=== PATIENT | female | born 1955 | race Caucasian/White ===

== ENCOUNTER 2018-01-13 06:06 | Day surgery (SDC) | payer OTHER ==
[~2018-01-13 06:06] MED LIST: ATEN50; CALC-197 PO; ESTR.625; LIPI20TA OR; LORTA10 PO; OMEP20CA5 PO
[2018-01-13] MEDS ORDERED: POVIDONE IODINE 5% (ANTISEPSIS KIT) 4 APPLICATIONS EACH NARE SCH (06:45)
[2018-01-13] MEDS ORDERED: CHLORHEXIDINE GLUCONATE 2 % 1 PACK (2 CLOTHS) TOPICAL SCH (06:45)
[2018-01-13] MEDS ORDERED: NS 1000 ML IV SCH (06:45)
[2018-01-13] MEDS ORDERED: MUPIROCIN 2% OINT 1 APPLIC/GM SYR NASAL SCH (06:45)
[2018-01-13] MEDS ORDERED: ceFAZolin 2 GM PREMIX 50 ML IV SCH (06:45)
[2018-01-13] MEDS ORDERED: ESTR0.62 VAGINAL (06:51)
[2018-01-13] MEDS ORDERED: MIRA50TA PO (06:51)
[2018-01-13] MEDS ORDERED: CITA40TA4 PO (06:51)
[2018-01-13] MEDS ORDERED: CALC1TAB12 PO (06:51)
[2018-01-13] MEDS ORDERED: MULT-65 PO (06:51)
[2018-01-13] MEDS ORDERED: LIPI20TA PO (06:51)
[2018-01-13] MEDS ORDERED: OMEP20TA93 PO (06:51)
[2018-01-13] MEDS ORDERED: [UNRECOGNIZED DRUG - REMARK] OP (06:51)
[2018-01-13] MEDS ORDERED: METO1TAB9 PO (06:51)
[2018-01-13] MEDS ORDERED: TYLE325T PO (06:51)
[2018-01-13] MEDS ORDERED: DILT1TAB4 PO (06:51)
[2018-01-13] MEDS ORDERED: LIDOCAINE HCL 1% PF 30 ML VIAL ONE (07:00)
--- NOTE | 2018-01-13 08:10 | MA ---
cc: Guillermo Beck MD, Alan S MD DATE: 01/13/2018 DATE OF PROCEDURE: 01/13/2017 INDICATION FOR PROCEDURE: Arrhythmia, concern for atrial fibrillation. DESCRIPTION OF PROCEDURE: The patient was brought to the DOC Unit in the postabsorptive state. After informed consent was obtained, a Guardium LINQ loop recorder was inserted subcutaneously into the left chest. The patient tolerated the procedure well without any apparent complications. The initial R-wave was 0.38 millivolts. Tachybrady pause and atrial fibrillation detection was enabled. The serial number was [id number]. MD SARAH Herrera/KYARA , 07:53 AM , 08:08 AM
== END 2018-01-13 08:18 | disposition home or self-care (01) ==
LOC: HDIC 06:06 → HDOC 06:06
PROVIDERS: ATTEND Nuclear Medicine Nuclear Cardiology
DX: I49.9 Cardiac arrhythmia, unspecified (principal); I49.1 Atrial premature depolarization; I47.1 Supraventricular tachycardia; I49.3 Ventricular premature depolarization; E78.5 Hyperlipidemia, unspecified; N32.81 Overactive bladder; M54.5 Low back pain; N81.11 Cystocele, midline; N39.3 Stress incontinence (female) (male)
CPT/HCPCS: 33282; C1764; J0690; J7030

== ENCOUNTER 2018-02-19 13:25 | Day surgery (SDC) | payer OTHER ==
[~2018-02-19] VITALS: Ht 165.1 cm; Wt 79.7 kg
[~2018-02-19 13:25] MED LIST changes: -ATEN50; -CALC-197 PO; +CALC1TAB12 PO; +CITA40TA4 PO; +DEXAMETHASONE SOD PHOS 4 MG/ML VIAL IV ONE; +DILT1TAB4 PO; -ESTR.625; +ESTR0.62 VAGINAL; +GLYCOPYRROLATE 1 MG/5 ML SYRINGE IV PUSH ONE; +LIDOCAINE HCL 1% PF 5 ML SYRINGE OTHER ONE; -LIPI20TA OR; +LIPI20TA PO; -LORTA10 PO; +METO1TAB9 PO; +MIRA50TA PO; +MULT-65 PO; +NEOSTIGMINE 5 MG/5 ML SYRINGE IV PUSH ONE; -OMEP20CA5 PO; +OMEP20TA93 PO; +ONDANSETRON HCL 4 MG/2 ML VIAL IV ONE; +PHENYLEPH/NS 1000 MCG/10 ML SYR IV ONE; +PROPOFOL 200 MG/20 ML AMP IV ONE; +ROCURONIUM INJ 50 MG/5 ML SYRINGE IV PUSH ONE; +TYLE325T PO; +[UNRECOGNIZED DRUG - REMARK] OP
[2018-02-19] MEDS ORDERED: HEPARIN-NS/PF INJ 1,000 ML ONE (14:20)
[2018-02-19 14:30] VITALS: BP 131/61; PULSE 57; RESP 17; TEMP 98; O2SAT 98
[2018-02-19 14:37] LABS: HEMATOCRIT 41.8 % (35.0-46.0); HEMOGLOBIN 14.5 GM/DL (11.6-15.3); MEAN CELL VOLUME 92.8 FL (80.0-100.0); MEAN CORPUSCULAR HEMOGLOBIN 32.1 PG (27.0-34.0); MEAN CORPUSCULAR HGB CONC 34.5 % (32.0-36.0); MEAN PLATELET VOLUME 7.9 FL (7.0-11.0); PLATELET COUNT 222 TH/MM3 (150-450); RED BLOOD COUNT 4.51 MIL/MM3 (4.00-5.30); WHITE BLOOD COUNT 5.1 TH/MM3 (4.0-11.0)
[2018-02-19 14:46] LABS: INTERNATIONAL NORMALIZED RATIO 0.9 RATIO; PROTHROMBIN TIME - PATIENT 9.4 SEC (9.8-11.6)
[2018-02-19] MEDS ORDERED: ISOPROTERENOL INJ PREMIX 50 ML IV ONE ×2 (14:48→17:07)
[2018-02-19] MEDS ORDERED: HEPARIN SODIUM - IV 10,000 UNITS/10 ML VIAL ONE ×2 (14:49→17:05)
[2018-02-19] MEDS ORDERED: HEPARIN-D5W 25,000 U/250 ML 250 ML ONE (14:49)
[2018-02-19 14:50] LABS: BICARBONATE 28.6 MEQ/L (21.0-32.0); CREATININE 1.05 MG/DL (0.50-1.00)
[2018-02-19] MEDS ORDERED: LEVOFLOXACIN 500 MG PREMIX INJ 100 ML IV ONE (14:57)
[2018-02-19] MEDS ORDERED: HEPARIN-NS/PF INJ 2,000 ML ONE (14:57)
[2018-02-19] MEDS ORDERED: APIX5TAB PO (15:02)
[2018-02-19] MEDS ORDERED: MAGN250T11 PO (15:02)
[2018-02-19] MEDS ORDERED: SODIUM CHLORID 0.9% 500 ML IV PRN (15:15)
[2018-02-19] MEDS ORDERED: POVIDONE IODINE 5% (ANTISEPSIS KIT) 4 APPLICATIONS EACH NARE PRN (15:15)
[2018-02-19] MEDS ORDERED: LORazepam 1 MG TAB SL SCH (15:15)
[2018-02-19] MEDS ORDERED: LACTATED RINGER'S 1000 ML IV PRN (15:15)
[2018-02-19] MEDS ORDERED: CHLORHEXIDINE GLUCONATE 2 % 1 PACK (2 CLOTHS) TOPICAL PRN (15:15)
[2018-02-19] MEDS ORDERED: METOPROLOL TARTRATE 25 MG TAB PO PRN (15:15)
[2018-02-19] MEDS ORDERED: SODIUM CHLORID 0.9% 500 ML INJ 500 ML IV SCH (15:30)
[2018-02-19] MEDS ORDERED: PROTAMINE SULFATE 50 MG/5 ML VIAL ONE (17:05)
[2018-02-19] MEDS ORDERED: LORazepam 2 MG/ML VIAL IV PUSH PRN (17:15)
[2018-02-19] MEDS ORDERED: SODIUM CHLOR 0.9% 250 ML INJ 250 ML IV PRN (17:15)
[2018-02-19] MEDS ORDERED: ATROPINE SULFATE 1 MG/ML VIAL IV PUSH PRN (17:15)
[2018-02-19] MEDS ORDERED: BACITRACIN OINT 0.9 GM PKT TOP ONE (17:15)
[2018-02-19] MEDS ORDERED: LIDOCAINE HCL 1% 50 ML VIAL INFIL PRN (17:15)
[2018-02-19] MEDS ORDERED: oxyCODONE/ACETAMINOPHEN 5 MG/325 MG TAB PO PRN ×2 (17:15)
[2018-02-19] MEDS ORDERED: SUGAMMADEX SODIUM 200 MG/2 ML VIAL IV PUSH ONE (17:41)
--- NOTE | 2018-02-19 17:50 | CATHPROC ---
[facility] HIS Report Study Information Study Number Admission Scheduled Start Study Start [id number] Feb 19 2018 1:25PM 02/19/2018 Feb 19 2018 2:06PM [place] Service Electrophysiology Study Admit Source Facility Department Other [facility] - Manager Ob Physician and Clinical Staff Initial Louise Barrera Gas Well Drilling Manager Fadia Esquivel,RT(R) TECH2 Gas Well Drilling Manager Lissette Townsend RN Other Anesthesia, TESTING ENGINEER Recorder Whit Hinson BSN Recorder Roopa Goldsmith RN Scrub Amadou Fitzgerald,RT(R) Procedures Performed Procedure Location (Site) Vessel Name Ablation Procedure CRYO Ablation LIPV LIPV CRYO Ablation LSPV LSPV CRYO Ablation RIPV RIPV CRYO Ablation RSPV RSPV ICE CATHETER INSERT RA Atruim Equipment Time Social Work Instructor Description Size Mfg Part Number Used/Scraped COPILOT VALVE, BLEEDBACK [id number] 15:27 [employer] Used CONTROL *[id number] TRANSDUCER, TRUWAVE [id number] 15:27 BROWNE GARZA * Used W/STOCKCOCK *[id number] NEEDLE, TRANSSEPTAL NR 98 [id number] 15:27 [facility] Used C1 *[id number] 17:21 CARDIVA MEDICAL VASCADE, FR5 CLOSURE SYSTEM FR 5 Used *[id number] 17:20 CARD[employer]A MEDICAL VASCADE, FR6 CLOSURE SYSTEM FR 6\\7 Used *[id number] 17:21 CARD[employer]A MEDICAL VASCADE, FR6 CLOSURE SYSTEM FR 6\\7 Used *[id number] 17:21 CARDIVA MEDICAL VASCADE, FR6 CLOSURE SYSTEM FR 6\\7 Used *[id number] COVER, TRANSDUCER CABLE 612-113 15:27 [employer] Used ACUNAV *[id number] 15:27 CONMED LEADWIRE, DEFIBRILLATION PAD 2001M-PC Used SHEATH SET, FR12 CHECK-TSERING [id number]-[id number] 15:27 COOK/PACER FR12 Used 13CM *[id number] 15:27 CORDIS/PACER SHEATH, FR10 JAVI 11CM FR 10 Used *[id number] [id number] 15:27 MEDLINE INDUSTRIES PACK, CCL CUSTOM * Used *[id number] 15:27 MEDLINE PACER HUGHES, LIMB * 2530 *[id number] Used [id number] 15:27 [employer] MEDICAL SHEATH, FR4.5 PRELUDE 11CM FR 4.5 Used [id number] 15:55 MERIT MEDICAL SHEATH, FR5.5 PRELUDE 11CM FR 5 [id number] Used [id number] 15:27 [employer] MEDICAL WIRE, 3MMJ .035 180CM 180CM Used *[id number] 15:27 NAMIC MANIFOLD, 4 PORT * Used *7521415 [id number] 15:27 NAMIC TUBING, HIGH PRESSURE 20" 20" Used *[id number] 15:27 NAMIC TUBING, HIGH PRESSURE 48" 48" Used *5537834 [id number] 15:27 NAMIC TUBING, HIGH PRESSURE 48" 48" Used *5323847 TUBING, PRESSURE INJECTION [id number] 15:27 NAMIC 72" Used 72" *8706535 [id number] 15:27 [employer] BLANKET,WARM AIR CCL * Used *[id number] 972516 15:27 [employer] MED[employer] CATHETER, JSN, QUAD FR 5 Used *4049899 539755 15:27 [employer] MEDICAL CATHETER, JSN, QUAD FR 5 Used *9172380 [id number] 15:27 [employer] MEDICAL ELECTRODE KIT, ANDRÉS X SURFACE * Used *3132629 437185 15:27 [facility] SHEATH, EPS, FR6 FAST CATH FR 6 Used *[id number] 15:27 [employer] MED[employer] SHEATH, EPS, FR7 FAST CATH FR 7 152733 Used 089829 15:27 [facility] [employer] MED[employer] SHEATH, EPS, FR8 FAST CATH FR 8 Used *[id number] SHEATH, FR8.5 STEERABLE SM 16:02 [facility] [employer] MEDICAL 71CM 719121 Used 71CM CATHETER, ACUNAV FR10 ICE [id number] 15:59 RAVI FR 10 Used (RAVI) *[id number] [place] PAD, ELECTROSURGICAL 15:27 * [id number] *8414958 Used SURGICAL GROUNDING (BLUE) BALLOON, ARCTIC FRONT [id number] 16:06 [employer]RON [employer] Used ADVANCE 28MM *[id number] CATHETER, ACHEIVE MAPPING 2ACH20 16:05 [employer] 20MM Used 20MM *[id number] 16:08 [employer] COAXIAL UMBILICAL 203CXC Used 16:08 [employer] ELECTRICAL UMBILICAL 2035UC Used SHEATH, FR12 FLEXCATH 16:08 VIT[employer]RON [employer] FR 12 4FC12 Used STEERABLE History: Allergies Allergy Reaction No Known Allergies History: Risk Factors Hypertension Dyslipidemia Yes Yes Labs Hgb (g/dl) Hct (%) RBC (MIL/MM3) WBC (l/cumm) Platelets (thousands) 11.60-17.00 35.00-51.00 4.00-5.90 4.00-11.00 150.00-450.00 14.5 41.8 4.5 5.1 222 Glucose (mg/dl) BUN (mg/dl) Creatinine (mg/dl) BUN:Creatinine (1:x) 74.00-106.00 7.00-18.00 0.50-1.30 10.00-20.00 87 15 1.1 13.6 Na (meq/l) K (meq/l) 136.00-145.00 3.50-5.10 143 4.1 INR (PTT:PT) 0.90-1.10 0.9 Medication Medication Total Dose (Bolus/Oral) Medication Total Dosage/Unit 1% XYLOCAINE 40 mL HEPARIN 01985 units Medications (Bolus/Oral) Medication Time Given Dosage/Unit Administered By Reason 1% XYLOCAINE 02/19/2018 3:52:29 PM 20 mL Louise Rodriguez 20 mL 1% XYLOCAINE given by Louise Rodriguez in Left Groin via Subcutaneous. Ordered by Louise Rodriguez. 1% XYLOCAINE 02/19/2018 3:56:37 PM 20 mL Louise Rodriguez 20 mL 1% XYLOCAINE given in lab by Louise Rodriguez in Right Groin via Subcutaneous. Ordered by Darin Rodriguez. HEPARIN 02/19/2018 3:59:14 PM [id number] units Anesthesia, TESTING ENGINEER As per physicians ve rbal order [id number] units HEPARIN given in lab by Erasto, TESTING ENGINEER via Peripheral IV. Ordered by Louise Rodriguez. [place] son: As per physicians verbal order. HEPARIN 02/19/2018 5:05:08 PM 2000 units Anesthesia, TESTING ENGINEER 2000 units HEPARIN given in lab by Anesthesia, TESTING ENGINEER via Peripheral IV. Ordered by Louise Rodriguez. Medication (Drip) Medication Time Given Dosage/Unit Concentration/Unit Diluent (ml) Solution ISUPREL 02/19/2018 5:00:57 PM 20 mcg/min 1 mg 250 NaCl .9 20 mcg/min ISUPREL given in lab by Anesthesia, TESTING ENGINEER via Peripheral IV. Pump/Drip Flow = 300 ml/hr usi ng NaCl .9 with a concentration of 1 mg in 250 ml. Ordered by Louise Rodriguez. ISUPREL DRIP STOPPED 02/19/2018 5:08:49 PM 0 units/hr 0 0 units/hr ISUPREL DRIP STOPPED given in lab by Anesthesia, TESTING ENGINEER. Pump/Drip Flow = 0 ml/hr using [Alix ution Name]. Ordered by Louise Rodriguez. LEVAQUIN 02/19/2018 3:02:26 PM 100 mL/hr 500 100 NaCl .9 100 mL/hr LEVAQUIN given in lab by Anesthesia, TESTING ENGINEER via Peripheral IV. Pump/Drip Flow = 0 ml/hr using NaCl .9 with a concentration of 500 in 100 ml. Ordered by Louise Rodriguez. Initial Case Assessment Cardiovascular HR NIBP 54 134/68 Edema Present Skin color Skin None Normal Warm Dry Circulatory - Right Pulses Dorsalis Pedis 1 Scale (0,1,2,3,4,d) Circulatory - Left Pulses Dorsalis Pedis 1 Scale (0,1,2,3,4,d) Circulatory - Lower Extremities Color Lower Right Color Lower Left Normal Normal Neurological State Oriented to time-place- Alert Moves all extremities person Respiration - General Respiration Rate SpO2 (%) (B/min) 16 100 Chronological Log Time Study Chronological Log 15:01:47 Patient arrived via Bed. 15:01:51 Anesthesia at bedside. Assumes care of patient. 15:01:54 Patient Name, D.O.B, / Armband Verified By R.N. 15:02:03 Consent signed by the physician and the patient and verified by the Manager Ob staff. 15:02:09 Indwelling Tapia catheter present upon patient's arrival. 500mg Levaquin in 100ml NS infus ing IVPB. 100 mL/hr LEVAQUIN given in lab by Erasto, TESTING ENGINEER via Peripheral IV. Pump/Drip Flow = 0 ml/hr using NaCl .9 with 15:02:26 a concentration of 500 in 100 ml. Ordered by Louise Rodriguez. 15:02:51 History and physical on the chart or being dictated. 15:03:07 Pre-op and post- op instructions given; patient acknowledges understanding of instructions. 15:03:30 Patient has been NPO for More than 6Hrs. 15:03:32 Skin Breakdown- none per pt 15:03:40 Patient Warmer Placed on the Table. 15:03:42 Disposable Defibrillator Pads Placed On Patient. 15:03:46 Breezy Prominences Protected 15:04:10 A # 20 IV was noted in the Antecubital (left). Grade = 0 0.9%NaCl @ KVO 15:04:37 A # 20 IV was noted in the Antecubital (right). Grade = 0 0.9%NaCl @ KVO Assessment: Initial Case, HR=54 BPM, YZGM=260/68 mmhg, Edema=None, Color=Normal, Skin = Warm, D ry Right Pulses: Adalberto Ped=1 Left Pulses: Adalberto Ped=1 15:05:06 Lower Right Extremities: Color=Normal Lower Left Extremities: Color=Normal Neurological: State=Alert, Ox3, SPARKS Respiration: Resp=16 B/min, UcX7=816 % 15:12:44 Bilateral groins prepped with 2% chlorhexidine. 15:16:16 A sterile drape was applied after a 3 minute drying time. 15:19:02 Anesthesiologist at bedside for intubation. 15:29:15 MD paged 15:29:34 MD responded 15:45:39 MD arrived. Time Out. Correct patient, procedure, procedure equipment, site and side verified with physicia n present. Time 15:47:45 concurred by MD, individual staff and TESTING ENGINEER. Time Out #2 - Consents verified, patient in correct position, all results are labled and displa yed, safety precautions 15:48:01 taken, antibiotics administered. Time out concurred by MD, individual staff and TESTING ENGINEER in procedu re 15:48:03 Case Start 15:49:20 ANDREW in progress 15:50:58 ANDREW completed. 15:52:29 20 mL 1% XYLOCAINE given by Louise Rodriguez in Left Groin via Subcutaneous. Ordered by Louise Rodriguez. 15:52:47 Vascular access was obtained in the Fem Vein (left). 15:52:53 Vascular access was obtained in the Fem Vein (left). 15:53:13 Vascular access was obtained in the Fem Vein (left). 15:53:22 A SHEATH, EPS, FR6 FAST CATH FR 6 was advanced into the Fem Vein (left) using the Modified Seldinger technique. 15:53:28 A SHEATH, EPS, FR7 FAST CATH FR 7 was advanced into the Fem Vein (left) using the Modified Seldinger technique. 15:53:43 A SHEATH, FR10 JAVI 11CM FR 10 was advanced into the Fem Vein (left) using the Modified S eldinger technique. 15:53:44 Vascular access was obtained in the Fem Art (left). 15:53:53 A SHEATH, FR5.5 PRELUDE 11CM FR 5 was advanced into the Fem Art (left) using the Modified S eldinger technique. 15:56:37 20 mL 1% XYLOCAINE given in lab by Louise Rodriguez in Right Groin via Subcutaneous. Ordered b Louise Quinones. 15:56:38 Vascular access was obtained in the Fem Vein (right). 15:56:53 A SHEATH, EPS, FR8 FAST CATH FR 8 was advanced into the Fem Vein (right) using the Modified Seldinger technique. A CATHETER, JSN, QUAD FR 5 was advanced vis Fem Vein (left) and placed in the CS. Placement was visually 15:57:49 confirmed under fluoroscopy. A CATHETER, JSN, QUAD FR 5 was advanced vis Fem Vein (left) and placed in the HIS. Placement wa s visually 15:58:10 confirmed under fluoroscopy. 15:58:40 CATHETER, ACUNAV FR10 ICE (RAVI) FR 10 Was Postioned. 11678 units HEPARIN given in lab by Anesthesia, TESTING ENGINEER via Peripheral IV. Ordered by Gregg Rodriguez. Reason: As per 15:59:14 physicians verbal order. 16:00:45 [place] needle in 16:03:45 A eps was advanced to the right atrium and passed through the septal wall to the left atriu m. 16:03:49 [place] needle out 16:07:38 Activated Clotting Time Drawn A SHEATH, FR12 FLEXCATH STEERABLE FR 12 was exchanged in the Fem Vein (right). This was necessa ry in order for 16:10:21 catheter support. A CATHETER, ACHEIVE MAPPING 20MM 20MM was advanced vis Fem Vein (right) and placed in the LA. P lacement was 16:12:44 visually confirmed under fluoroscopy. 16:14:52 ACT (Normal Range 90-180) = 416 16:16:33 mapping in progress A BALLOON, ARCTIC FRONT ADVANCE 28MM was inserted over WIRE, 3MMJ .035 180CM 180CM via the Fem Vein 16:20:36 (right). 16:21:16 Cryo Ablation of the LSPV with a BALLOON, ARCTIC FRONT ADVANCE 28MM. First 16:23:33 Cryo Ablation of the LSPV with a BALLOON, ARCTIC FRONT ADVANCE 28MM. Second 16:33:26 Cryo Ablation of the LIPV with a BALLOON, ARCTIC FRONT ADVANCE 28MM. First 16:33:55 First cryo to LIPV aborted 16:34:48 Cryo Ablation of the LIPV with a BALLOON, ARCTIC FRONT ADVANCE 28MM. First 16:38:24 Cryo Ablation of the LIPV with a BALLOON, ARCTIC FRONT ADVANCE 28MM. Second 16:39:19 Second cryo to LIPV aborted 16:40:09 Cryo Ablation of the LIPV with a BALLOON, ARCTIC FRONT ADVANCE 28MM. Second 16:47:37 Cryo Ablation of the RIPV with a BALLOON, ARCTIC FRONT ADVANCE 28MM. First 16:51:14 Cryo Ablation of the RIPV with a BALLOON, ARCTIC FRONT ADVANCE 28MM. Second 16:53:24 Cryo Ablation of the RSPV with a BALLOON, ARCTIC FRONT ADVANCE 28MM. First 16:57:16 Cryo Ablation of the RSPV with a BALLOON, ARCTIC FRONT ADVANCE 28MM. Second 16:58:47 Activated Clotting Time Drawn 20 mcg/min ISUPREL given in lab by Anesthesia, TESTING ENGINEER via Peripheral IV. Pump/Drip Flow = 300 ml/ hr using NaCl .9 17:00:57 with a concentration of 1 mg in 250 ml. Ordered by Louise Rodriguez. 17:01:26 EP study in progress 17:04:30 ACT (Normal Range 90-180) = 292 17:05:08 2000 units HEPARIN given in lab by Anesthesia, TESTING ENGINEER via Peripheral IV. Ordered by Shimon Rodriguez 17:07:13 Mapping catheter out 17:08:24 Cryo balloon out 0 units/hr ISUPREL DRIP STOPPED given in lab by Anesthesia, TESTING ENGINEER. Pump/Drip Flow = 0 ml/hr usin g [Solution Name]. 17:08:49 Ordered by Louise Rodriguez. A SHEATH SET, FR12 CHECK-TSERING 13CM FR12 was exchanged in the Fem Art (right). This was necessary in order to 17:09:33 minimize site leakage. 17:10:26 All catheters removed without difficulty 17:16:40 Activated Clotting Time Drawn 17:16:40 Ablation procedure performed: AFIB. 17:16:44 EP Procedure was performed. 17:19:44 ACT (Normal Range 90-180) = 156 17:20:09 VASCADE, FR6 CLOSURE SYSTEM FR 6\\7 placement in the Fem Vein (left) 17:21:18 12 Fr right femoral venous sheath removed; pressure applied to access site. 17:22:26 VASCADE, FR6 CLOSURE SYSTEM FR 6\\7 placement in the Fem Vein (left) 17:24:37 VASCADE, FR6 CLOSURE SYSTEM FR 6\\7 placement in the Fem Vein (left) 17:26:48 VASCADE, FR5 CLOSURE SYSTEM FR 5 placement in the Fem Art (left) 17:31:12 PACU called. Spoke to Magda 17:39:24 Case End 17:39:31 No case complications noted. 17:39:32 Cine recording checked. 17:40:07 Bedside Report will be given. 17:40:08 Implantable Device card placed in patient's chart. 17:41:26 Sterile dressing applied to bilateral sites 17:48:19 Patient moved to stretcher 17:50:12 Defibrillator and ground pads removed. Skin intact. End Study - Contrast Media Used In Study Contrast Total Opened (mL) Total Used (mL) Total Wasted (mL) Omnipaque 70 70 0 End Study - Maximum Contrast Load Max Contrast Load (mL) 362.2 End Study - Radiation Exposure Fluoro Time (minutes) 8.5 End Study - Sheaths Sheaths Pulled By Sheath Hold Time (min) Lissette Townsend 20 End Study - Patient Disposition Complications Transferred To Interventional Outcome No Telemetry Bed successful
[2018-02-19] MEDS ORDERED: NON-FORMULARY DRUG (Calcium Carbonate-Cholecalciferol (Calcium 500 +D) 1 TAB) PO SCH (18:00)
[2018-02-19] MEDS ORDERED: MIDAZOLAM HCL 2 MG/2 ML VIAL ONE (18:05)
[2018-02-19] MEDS ORDERED: ONDANSETRON ODT 4 MG TAB PO PRN (18:30)
[2018-02-19] MEDS ORDERED: PILL SPLITTER OTHER PRN (18:30)
[2018-02-19] MEDS ORDERED: DO NOT ADM ANY ANTICOAGULANT DRUGS PRN (19:30)
[2018-02-19] MEDS ORDERED: ATORVASTATIN 20 MG TAB PO SCH (21:00)
[2018-02-19] MEDS: APIXABAN 5 MG TABLET PO SCH (21:00)
[2018-02-19] MEDS ORDERED: TOLTERODINE TARTRATE 4 MG CAP LA PO SCH (21:00)
[2018-02-19] MEDS ORDERED: NON-FORMULARY DRUG (Mirabegron (Myrbetriq) 50 MG) PO SCH (21:00)
[2018-02-19] MEDS ORDERED: ACETAMINOPHEN 1000 MG/100 ML 100 ML IV SCH (21:15)
[2018-02-19] MEDS ORDERED: ACETAMINOPHEN 325 MG TAB PO SCH (22:00)
[2018-02-20] MEDS ORDERED: NON-FORMULARY DRUG (Multiple Vitamin (Multi-Vitamin Daily) 1 TAB) PO SCH (09:00)
[2018-02-20] MEDS ORDERED: PANTOPRAZOLE SOD 20 MG DELAYED RELEASE TAB PO SCH (09:00)
[2018-02-20] MEDS ORDERED: MAGNESIUM OXIDE 400 MG TAB PO SCH (09:00)
[2018-02-20] MEDS: APIXABAN 5 MG TABLET PO SCH (09:00)
[2018-02-20] MEDS ORDERED: CITALOPRAM HYDROBROMIDE 40 MG TAB PO SCH (09:00)
[2018-02-20] MEDS ORDERED: METOPROLOL SUCCINATE 50 MG EXTENDED RELEASE TAB PO SCH (09:00)
[2018-02-20] MEDS ORDERED: NON-FORMULARY DRUG (Magnesium Oxide 250 MG) PO SCH (09:00)
[2018-02-20] MEDS ORDERED: CALCIUM/VITAMIN D 250 MG/125 U TAB PO SCH (09:00)
[2018-02-20] MEDS ORDERED: NON-FORMULARY DRUG (Omeprazole 20 MG) PO SCH (09:00)
[2018-02-20] MEDS ORDERED: MULTIVITAMIN TAB PO SCH (09:00)
[2018-02-20 09:28] VITALS: BP 144/81; PULSE 98; RESP 18; TEMP 98; O2SAT 98
--- NOTE | 2018-02-20 19:34 | EKG ---
Date Performed: 02/19/2018 Time Performed: 14:50:12 PTAGE: 62 years EKG: Sinus bradycardia. Normal ECG except for rate Since PREVIOUS TRACING , no significant change noted PREVIOUS TRACING DOCTOR: Delfina Gordon Interpretating Date/Time 02/20/2018 19:32:43
--- NOTE | 2018-02-20 19:34 | EKG ---
Date Performed: 02/19/2018 Time Performed: 18:11:27 PTAGE: 62 years EKG: Sinus rhythm NORMAL ECG Compared to PREVIOUS TRACING , the patient is no longer bradycardic. PREVIOUS TRACIN02/19/2018 14. 50 DOCTOR: Delfina Gordon Interpretating Date/Time 02/20/2018 19:32:59
--- NOTE | 2018-03-05 10:37 | PD.CARD ---
Atrial Fibrillation Cryo Study PROCEDURE DATE: February 19, 2018 PROCEDURE PERFORMED Electrophysiology study, CS cannulation, 3-D mapping, transeptal approach, right and left heart catheterization, cryoablation of atrial fibrillation, pulmonary vein isolation, posterior ablation, anterior ablation, repeat electrophysiology study on Isuprel infusion, intracardiac echo. Very complex case. INDICATIONS FOR PROCEDURE Ms. Vargas is a 62-year-old female with atrial fibrillation, symptomatic on multiple medications, on anticoagulation, referred for electrophysiology study and ablation. The risks, the nature and the benefit of the procedure are clearly stated to her. The risks include pneumothorax, cardiac perforation, stroke, need for open heart surgery and even . The patient understood and agreed to proceed. PROCEDURE As written informed consent was obtained prior to esophageal echo, the patient was kept on the table where she was prepped and draped in the usual sterile fashion. Conscious sedation was initiated and throughout the procedure by the anesthesiologist. Once sedation was verified, the right and left inguinal area was anesthetized with 2% Xylocaine. Using modified Seldinger technique, the left femoral vein was cannulated on three occasions and three guidewires were advanced over the wire, one 6, one 7, and one 10-[place] Hemaquet were advanced. Then the left femoral artery was done on one occasion, one guidewire was advanced over the wire. A 4-[place] Hemaquet was advanced. Then the right femoral vein was cannulated on one occasion and one guidewire was advanced over the wire. An 8-[place] Hemaquet was advanced. Then under fluoroscopic guidance through the 6 and 7-[place] Hemaquet, two 5- [place] Violeta curved quadripolar electrophysiology catheters were advanced and positioned on the His as well as coronary sinus. The patient was in sinus rhythm. Basic interval was measured. They were all within normal limits. Then through the 10-[place] Hemaquet, a SinglePlatform-Mcclain AcuNav intracardiac echo catheter was advanced and placed at the right atrium. Multiple views were obtained. There was no pericardial effusion. Pulmonary vein was seen. The atrial septum was visualized. Then the 8-[place] Hemaquet in the right femoral vein was exchanged for an Agilis transseptal sheath that was placed all the way to the superior vena cava. Through this sheath a Accident needle was advanced. Then the sheath, the dilator and the needle were pulled back progressively until foci engaged. Once the needle was advanced, RF was delivered for 2 seconds. I was able to cross into the left atrium. Once the needle was crossed, the dilator was advanced. Once the dilator was crossed, the sheath was advanced. Once the sheath crossed , the dilator and needle were removed. An intracardiac echo showed the sheath in good position. The patient already received 10,000 units of heparin. The goal is to get an ACT around 360 during the ablation. Through this sheath a [employer] [place] 20-pole circumferential catheter was advanced. Using [employer] endocardial solution mapping system a three-dimensional configuration of the left atrium was obtained. Points were taken at the left superior and inferior vein, right superior and inferior vein, mitral valve, and appendage. Then at this point I decided to proceed with cryoablation. The circumferential catheter was removed. Through the sheath a 0.035 wire was advanced. I did exchange the Agilis sheath for a [employer] flex sheath. I decided to use a 28mm balloon. The balloon was advanced over the Acheive catheter. First I did engage the left superior vein. The balloon was inflated , complete occlusion obtained. CryoEnergy was delivered for 3 and 3 minutes. Temperature reached -52. Then I did engage the left inferior vein, occlusion obtained. Venography showed complete occlusion and CryoEnergy was delivered for 3 and 3 minutes. Temperature was around -50. Then the right inferior was engaged, complete occlusion obtained. Temperature reach -48 for 3 and 3 minutes. Then the right superior was engaged. Before CryoEnergy of the right veins, the His catheter was placed at the left and the right subclavian. Phrenic nerve pacing was performed. There was diaphragmatic stimulation. That is going to be used for phrenic nerve monitoring during cryoablation. I did cryoablate the right superior vein. There was no loss of phrenic nerve movement , diaphragmatic movement. Phrenic nerve was intact. The temperature dropped to -54 for 3 and 3 minutes. At that point I removed the balloon. The circumferential catheter was advanced into the veins. Pacing from the vein showed no conduction to the atrium. Pacing from the atrium showed no conduction to the veins. The patient at this point received Isuprel infusion for around 15 minutes at 20mcg. No tachyarrhythmia was induced, no conduction resumed. Post-Isuprel no conduction resumed either. At that point the procedure was complete. All catheters were removed, the transeptal sheath was exchanged for a 12-[place] Hemaquet. Intracardiac echo showed pericardial effusion, still good flow in the pulmonary vein. No incident reported. The patient tolerated the procedure. Blood loss minimal. 1. Electrocardiogram: At baseline the patient was in sinus. Postprocedure the patient in sinus. 2. Basic Interval: Base cycle length was around 960 milliseconds. 3. Tachyarrhythmia: Atrial fibrillation was mapped and ablated. Ablation was successful. CONCLUSION Successful electrophysiology study, mapping and cryo ablation of atrial fibrillation, pulmonary vein isolation, posterior and anterior wall ablation, repeat electrophysiology study on Isuprel infusion. COMMENT AND RECOMMENDATIONS The patient is going to be transferred to the telemetry unit, will be observed, and when stable can be discharged home. Louise Rodriguez MD Mar 05, 2018 10:37
== END 2018-02-20 09:20 | disposition home or self-care (01) ==
LOC: HDOC 13:25 → HDIC 13:26 → HPAC 21:00 → HDOC 02-20 09:20
PROVIDERS: ATTEND Internal Medicine Interventional Cardiology
DX: I48.91 Unspecified atrial fibrillation (principal); E78.5 Hyperlipidemia, unspecified; R00.2 Palpitations; I49.3 Ventricular premature depolarization; I47.1 Supraventricular tachycardia; I49.1 Atrial premature depolarization
CPT/HCPCS: 00537; 80048; 85002; 85027; 85610; 85730; 86850; 86900; 86901; 93005; 93312; 93320; 93325; 93613; 93623; 93656; 93662; C1730; C1731; C1732; C1733; C1759; C1760; C1766; G0269; J0131; J1100; J1644; J1956; J2250; J2370; J2405; J2710; J2720; J3010